=== PATIENT | male | born 1950 | race Caucasian/White ===

== ENCOUNTER 2021-06-16 18:40 | Emergency (ER) | payer MEDICARE, MEDICAID, SELFPAY ==
[2021-06-16 18:41] VITALS: BP 150/97; PULSE 123; RESP 20; TEMP 37.6; O2SAT 91; BMI 34.9
--- NOTE | 2021-06-16 20:41 | EKG12_ITS ---
Test Reason : COUGH Blood Pressure : / mmHG Vent. Rate : 093 BPM Atrial Rate : 093 BPM P-R Int : 138 ms QRS Dur : 088 ms QT Int : 354 ms P-R-T Axes : 046 030 065 degrees QTc Int : 440 ms Normal sinus rhythm Nonspecific ST and T wave abnormality Abnormal ECG Confirmed by DICK MICHAEL, BINDU ([id number]), supervising film or videotape editor ANGÉLICA MARIE ([id number]) on 06/18/2021 1:32:56 PM Referred By: CAMRON Confirmed By:BINDU JENNINGS MD
--- NOTE | 2021-06-16 20:49 | EX.ED.DYSGE1 ---
HPI History of Present Illness Chief Complaint: Cough Informant: patient and spouse/S.O. Narrative Narrative: Patient presents with concern for Covid. He has had symptoms for about 1 week. He was exposed to her daughter about 3 weeks ago with it. He does not have any immunizations. He had started with nasal congestion. He then developed cough. He only has very mild dyspnea. No chest pain. He has had diarrhea but no nausea or vomiting. He states he cannot eat but what he means is that he does not have an appetite. He is able to eat and drink well. There is no vomiting. He states he came in here because his was concerned about him. His states she is concerned because he has fevers and just lays around the house and does not do much. Past medical history high blood pressure high cholesterol and cervical stenosis. Atorvastatin, losartan No known drug allergies Surgery is spinal surgery Non-smoker lives with , not immunized [facility] Home Medications levofloxacin 750 mg PO DAILY #6 tab 06/16/21 [Rx Last Taken Unknown] Allergy/AdvReac Type Severity Reaction Status Date / Time No Known Allergies Allergy Verified 06/16/21 18:41 Social History Smoking Status: Former smoker ROS ROS ED Constitutional Constitutional ED: Reports chills, fever(s) and sweats; Denies weight loss Eyes Eyes: Denies change in vision ENT ENT ED: Reports rhinorrhea; Denies ear pain or sore throat Cardiovascular Cardiovascular: Denies chest pain or palpitations Respiratory/Chest Respiratory/Chest: Reports cough and dyspnea; Denies sputum Gastrointestinal Gastrointestinal: Reports diarrhea; Denies abdominal pain, constipation, melena, nausea or vomiting Genitourinary Genitourinary ED: Denies dysuria Musculoskeletal Musculoskeletal: Reports myalgias Integumentary Denies rash Neurologic Neurologic: Denies headache(s) or weakness Psychiatric Psychiatric: Denies anxiety Endocrine Endocrinology: Denies polyuria Allergic/Immunologic Allergic/Immunologic ED: Denies urticaria EXAM Physical Exam Const Vital Signs: 06/16/21 18:41 Temperature 99.6 F H Temperature Source Temporal Pulse Rate 123 H Respiratory Rate 20 H Blood Pressure 150/97 H Blood Pressure Mean 114 Pulse Ox 91 Oxygen Delivery Method Room Air Positive well nourished, well developed and obese General Appearance ED: well developed and NAD Nutritional Appearance: obese HEENT Reports dry mucous membranes Negative for trauma or tenderness Mouth ED: Yes dry mucous membranes Mouth: dry mucous membranes Eyes General Eye ED: Negative for pale conjunctiva Neck no lymphadenopathy Chest Wall inspection of chest normal Resp normal respiratory effort Resp Narrative: Patient does have some mild bilateral basilar rhonchi more toward the left base. I do not hear wheezes. His breathing is easy and unlabored. Auscultation: rhonchi Cardio no murmurs; Negative for regular rhythm Rate: tachycardic GI normal to inspection, nondistended, normoactive bowel sounds and non-tender Palpation: soft Back/Spine no CVA tenderness Extremity normal to inspection General Extremety ED: Negative for edema or tenderness General Extremity: Negative for edema Neuro oriented x3 Psych mental status grossly normal Skin no rashes or lesions noted MDM MDM MDM Narrative Medical decision making narrative: Patient CBC is normal. Electrolytes show no marked abnormalities. Lactic acid is normal. Troponin is negative. X-ray was reading some bilateral perihilar infiltrates. There is a small left effusion. He looks mostly like a left-sided findings. His Covid actually was negative. I explained that this Covid may be a false negative. But he does have some cough fever and he has x-ray findings more on the left. We will treat as potential pneumonia. He is comfortable going home. He states he feels well. He can eat and drink. His saturations are 92% moving around in the room. If he develops pain, vomiting, cannot keep meds down, dyspnea or any other findings he should return. Lab Data Attestation: I reviewed the patient's lab results. Labs: Laboratory Results - last 24 hr 06/16/21 06/16/21 06/16/21 21:21 21:21 21:21 WBC 6.0 RBC 4.96 Hgb 14.6 Hct 45.4 MCV 91.5 MCH 29.4 MCHC 32.2 RDW Std Deviation 45.4 H RDW Coeff of Matt 13.3 Plt Count 161 MPV 9.0 Immature Gran % (Auto) 0.200 Neut % (Auto) 79.8 H Lymph % (Auto) 10.6 L Blaine % (Auto) 8.9 Eos % (Auto) 0.2 Baso % (Auto) 0.3 Absolute Neuts (auto) 4.8 Absolute Lymphs (auto) 0.63 L Nucleated RBC % 0 Sodium 136 Potassium 3.7 Chloride 103 Carbon Dioxide 26.0 Anion Gap 7 BUN 14 Creatinine 0.97 Estim Creat Clear Calc 66.60 Est GFR (MDRD) Af Amer 98 Est GFR (MDRD) Non-Af 81 BUN/Creatinine Ratio 14.4 Glucose 130 H Lactic Acid 1.2 Calcium 8.1 L Troponin I High Sens 18 Radiography Diagnostic Testing: Radiology Impression Chest X-Ray 06/16/21 21:35 IMPRESSION: Bilateral perihilar infiltrates. Small left pleural effusion with overlying atelectasis. Electronically Signed: Malachi Birch MD at 22:34 EDT Tel , Service support , EKG Initial EKG: Comments: EKG done for cough and mild dyspnea read by me shows a normal sinus rhythm with some irregular baseline and nonspecific changes. No ectopy. There is no acute ST elevation consistent with infarct. [place] interval, QRS duration and QTc are normal. The EKG does have a little bit more nonspecific changes than 1 from 06 December 2006?over 14 years ago. Discharge Plan Triage Chief Complaint: Cough Other Complaint: Diarrhea Fever ED Provider: Jimmie Payton Dx/Rx/DC Orders Clinical Impression: Pneumonia Instructions: ED Pneumonia (Adult) Prescriptions: New levofloxacin 750 mg tablet 750 mg PO DAILY Qty: 6 RF: 0 Primary Care Provider: Zachery Lindquist Referrals: Zachery Lindquist MD [Primary Care Provider] - 3-5 Days Disposition Disposition: Home, Self Care
[2021-06-16 21:35] LABS: Absolute Lymphocyte Count 0.63 X10^3/uL (0.83-4.51); Absolute Neutrophil Count 4.8 X10^3/uL (2.0-7.7); Basophil# 0.02 X10^3/uL; Basophil% 0.3 % (0-1); Eosinophil# 0.01 X10^3/uL; Eosinophils% 0.2 % (0-5); Hematocrit 45.4 % (40-54); Hemoglobin 14.6 g/dL (13.0-16.5); Lymphocyte # 0.63 X10^3/ul (0.83-4.51); Lymphocyte % 10.6 % (19-41); Mean Corp Hgb Conc 32.2 g/dL (32-36); Mean Corpuscular Hgb 29.4 pg (27.0-32.0); Mean Corpuscular Volume 91.5 fL (80-94); Monocyte# 0.53 X10^3/uL; Monocyte% 8.9 % (0-10); NRBC Flagged by Analyzer 0 % (0-5); Neutrophil # 4.75 X10^3/uL (2.7-7.7); Neutrophil % 79.8 % (47-70); Platelet Count 161 K/mm3 (150-450); RBC Distribution Width CV 13.3 % (11.6-14.6); RBC Distribution Width SD 45.4 fl (35.1-43.9); Red Blood Count 4.96 M/mm3 (4.6-6.2)
--- NOTE | 2021-06-16 21:35 | RAD_ITS ---
STUDY: X-RAY CHEST REASON FOR EXAM: Male, 70 years old. SOB TECHNIQUE: Portable, upright, AP chest radiograph COMPARISON: None. FINDINGS: Lower cervical posterior instrumented fusion partially demonstrated. Left basilar atelectasis. Streaky bilateral perihilar opacities. Small left pleural effusion. Normal size heart. Normal mediastinum and uvaldo. Normal visualized pulmonary arteries. Normal visualized aortic arch and descending thoracic aorta. Normal visualized thoracic spine. Normal visualized ribs, clavicles, and shoulders. There is no demonstrated abnormality of the visualized soft tissue structures of the upper abdomen. RAD/Chest 1 View (Portable) IMPRESSION: Bilateral perihilar infiltrates. Small left pleural effusion with overlying atelectasis. Electronically Signed: Malachi Birch MD at 22:34 EDT Tel , Service support ,
[2021-06-16 21:54] LABS: Anion Gap 7 (5-15); BUN 14 mg/dL (7-18); BUN/Creat Ratio 14.4 RATIO (10-20); Calcium,Total 8.1 mg/dL (8.5-10.1); Chloride 103 mmol/L (98-107); Creatinine, Serum 0.97 mg/dL (0.70-1.30); EST Glomerular Filtration Rate 81 mL/min (>60); Est Glom Filt Rate - Afr Amer 98 mL/min (>60); Glucose 130 mg/dL (74-106); Potassium 3.7 mmol/L (3.5-5.1); Sodium Level 136 mmol/L (136-145); Troponin-I HS 18 pg/mL (3.0-78.0)
[2021-06-16 21:55] LABS: Lactic Acid 1.2 mmol/L (0.4-1.9)
[2021-06-16 23:09] VITALS: BP 159/92; PULSE 91; PULSE 92; RESP 21; TEMP 36.1; O2SAT 93
[2021-06-16 23:12] VITALS: BP 159/92; PULSE 92; RESP 18; O2SAT 93
[2021-06-16] MEDS: levoFLOXacin 750 MG Tablet PO (23:16)
== END 2021-06-16 23:18 | disposition home or self-care (01) ==
PROVIDERS: Emergency Provider Emergency Medicine; PCP Family Medicine
DX: J18.9 Pneumonia, unspecified organism (principal); Z20.822 Contact with and (suspected) exposure to COVID-19; R06.00 Dyspnea, unspecified; R19.7 Diarrhea, unspecified; M79.10 Myalgia, unspecified site; I10 Essential (primary) hypertension; E78.00 Pure hypercholesterolemia, unspecified; E66.9 Obesity, unspecified; Z87.891 Personal history of nicotine dependence
CPT/HCPCS: 71045; 80048; 83605; 84484; 85025; 87426; 93005; 96360; 96361; 99284; J7040; A4216

== ENCOUNTER 2021-06-22 09:08 | Inpatient (IN) | payer MEDICARE, MEDICAID, SELFPAY ==
[2021-06-22] VITALS (11 sets, daily range): BP systolic 125–149; BP diastolic 3–93; PULSE 76–96; RESP 18–34; TEMP 36–37.8; O2SAT 85–95; BMI 34.9
--- NOTE | 2021-06-22 09:29 | EKG12_ITS ---
Test Reason : Blood Pressure : / mmHG Vent. Rate : 089 BPM Atrial Rate : 089 BPM P-R Int : 126 ms QRS Dur : 092 ms QT Int : 388 ms P-R-T Axes : 032 041 044 degrees QTc Int : 472 ms Normal sinus rhythm Nonspecific ST abnormality Abnormal ECG Confirmed by DICK MICHAEL, BINDU ([id number]), commissioning editor HOWARD DONOHUE ([id number]) on 06/26/2021 1:34:08 PM Referred By: FAUSTO Confirmed By:BINDU JENNINGS MD
--- NOTE | 2021-06-22 09:33 | EDS_ITS ---
HPI History of Present Illness Chief Complaint: Shortness of Breath Narrative Narrative: Patient presents with shortness of breath. He was found to be hypoxic in triage at 85%. He was recently seen and had a negative Covid test but his symptoms were classic thus the thought was that he had a false negative test. He was discharged home but now he is feeling worse. He is presenting with fevers myalgias and shortness of breath the cough is nonproductive. He has no neck pain or stiffness. No rash. No abdominal pain, no urinary symptoms. He has no confusion. [facility] Medical History (Updated 06/22/21 @ 10:[address] Malachi Youssef MD) Cervical spine degeneration Depression Depression Former smoker Hypertension Home Medications levofloxacin 750 mg PO DAILY #6 tab 06/16/21 [Rx Last Taken Unknown] atorvastatin 10 mg OTHER DAILY 06/22/21 [History Last Taken Unknown] losartan 25 mg PO DAILY 06/22/21 [History Last Taken Unknown] sertraline 100 mg OTHER DAILY 06/22/21 [History Last Taken Unknown] Allergy/AdvReac Type Severity Reaction Status Date / Time No Known Allergies Allergy Verified 06/22/21 09:11 Social History Smoking Status: Former smoker ROS ROS ED ROS Narrative Past medical history: Reviewed, includes hypertension, hypercholesterolemia, depression Medications: Reviewed Social history: Noncontributory Review of systems: All systems negative except as indicated General: Fever and generalized weakness Eyes: No visual changes ENT: No upper airway congestion, normal voice Neck: No neck pain Cardiovascular: No chest pain Respiratory: Shortness of breath as in HPI Gastrointestinal: No abdominal pain, nausea vomiting or diarrhea Genitourinary: No dysuria Musculoskeletal: Generalized myalgias Skin: No rash Neurological: No memory loss, confusion or any focal weakness Psych: No recent behavioral changes Hematologic: No easy bleeding or easy bruising EXAM Physical Exam Narrative Exam Narrative: Physical exam General: Patient appears uncomfortable. He does not appear toxic Head: Normocephalic, Atraumatic Eyes: Conjunctiva not pale ENT: Slightly dry mucous membranes Neck: Supple, Nontender, No lymphadenopathy Cardiovascular: Regular rate, Regular rhythm Respiratory: He is tachypneic with coarse bilateral breath sounds but they are mostly clear. He is speaking in full sentences. Abdomen: Soft, Nontender, Nondistended Back: Nontender, Normal Inspection. Negative for: CVA tenderness Extremities: Nontender, No edema Skin: Normal color, No rash Neurological: Alert, Normal Strength, Normal Sensation Psychological: Normal affect Const Vital Signs: 06/22/21 09:11 06/22/21 09:13 06/22/21 09:24 Temperature 100 F H 100.0 F H Temperature Source Temporal Oral Pulse Rate 96 91 Respiratory Rate 30 H 20 H Respiratory Effort Blood Pressure 149/81 H 125/3 H Blood Pressure Mean 103 43 Pulse Ox 85 91 93 Oxygen Delivery Method Room Air Nasal Cannula Nasal Cannula Oxygen Flow Rate (L/min) 6 6 Fraction of Inspired Oxygen (FIO2) 06/22/21 09:36 06/22/21 10:20 Temperature 99.2 F H Temperature Source Temporal Pulse Rate 86 Respiratory Rate 18 Respiratory Effort Short of Breath Blood Pressure 134/70 H Blood Pressure Mean 91 Pulse Ox 95 Oxygen Delivery Method Room Air Nasal Cannula Oxygen Flow Rate (L/min) 6 6 Fraction of Inspired Oxygen (FIO2) 93 MDM MDM MDM Narrative Medical decision making narrative: Patient is hypoxic, he does have bilateral infiltrates, these do appear to look like a Covid pneumonia, the initial antigen test was negative, I will await the PCR test. If this is also negative we will need to place the patient on antibiotics. Otherwise he is hypoxic and will need admission. Lab Data Labs: Laboratory Results - last 24 hr 06/22/21 06/22/21 09:30 09:30 WBC 12.4 H RBC 4.51 L Hgb 13.2 Hct 39.3 L MCV 87.1 MCH 29.3 MCHC 33.6 RDW Std Deviation 42.3 RDW Coeff of Matt 13.2 Plt Count 279 MPV 8.4 Immature Gran % (Auto) 2.200 H Neut % (Auto) 88.8 H Lymph % (Auto) 4.8 L Kay % (Auto) 4.0 Eos % (Auto) 0.0 Baso % (Auto) 0.2 Absolute Neuts (auto) 11.0 H Absolute Lymphs (auto) 0.60 L Nucleated RBC % 0 Sodium 132 L Potassium 3.2 L Chloride 98 Carbon Dioxide 23.0 Anion Gap 11 BUN 18 Creatinine 0.96 Estim Creat Clear Calc 67.29 Est GFR (MDRD) Af Amer 99 Est GFR (MDRD) Non-Af 82 BUN/Creatinine Ratio 18.8 Glucose 128 H Calcium 8.3 L Total Bilirubin 0.60 AST 58 H ALT 44 Alkaline Phosphatase 71 Troponin I High Sens 30 Total Protein 6.9 Albumin 2.5 L Globulin 4.4 H Albumin/Globulin Ratio 0.6 L Radiography Diagnostic Testing: Radiology Impression Chest X-Ray 06/22/21 09:42 IMPRESSION: New infiltrate in the right upper lobe abutting the right minor fissure. Progressive left basilar infiltrates. Electronically Signed: James Ring MD at 9:55 EDT , Service support , Discharge Plan Triage Chief Complaint: Shortness of Breath ED Provider: Malachi Youssef Dx/Rx/DC Orders Clinical Impression: Pneumonia, Hypoxia Prescriptions: No Action levofloxacin 750 mg tablet 750 mg PO DAILY Qty: 6 RF: 0 losartan 25 mg Tablet 25 mg PO DAILY RF: 0 atorvastatin 10 mg 10 mg OTHER DAILY RF: 0 sertraline 100 mg 100 mg OTHER DAILY RF: 0 Primary Care Provider: Zachery Lindquist Referrals: Zachery Lindquist MD [Primary Care Provider] - Disposition Disposition: Acute Care Hospital [facility]
--- NOTE | 2021-06-22 09:42 | RAD_ITS ---
STUDY: X-RAY CHEST REASON FOR EXAM: Male, 70 years old. Worsening shortness of breath and weakness. TECHNIQUE: Single AP portable view of the chest. COMPARISON: None. FINDINGS: EKG lead traversing. There is elevation of the right hemidiaphragm. Findings suggestive of an early infiltrate in the right upper lobe abutting the right minor fissure. Patchy left lower lobe infiltrates. There is no demonstrated pleural abnormality. Normal size heart. Normal mediastinum and uvaldo. Normal visualized pulmonary arteries. There is atherosclerotic tortuosity of the aortic arch and descending thoracic aorta. There are diffuse degenerative changes of the visualized thoracic spine. Prior fusion in the lower cervical spine. There is no demonstrated abnormality of the visualized soft tissue structures of the upper abdomen. RAD/Chest 1 View (Portable) IMPRESSION: New infiltrate in the right upper lobe abutting the right minor fissure. Progressive left basilar infiltrates. Electronically Signed: James Ring MD at 9:55 EDT , Service support ,
[2021-06-22 09:43] LABS: Basophil# 0.03 X10^3/uL; Basophil% 0.2 % (0-1); Hematocrit 39.3 % (40-54); Hemoglobin 13.2 g/dL (13.0-16.5); Lymphocyte % 4.8 % (19-41); Mean Corp Hgb Conc 33.6 g/dL (32-36); Mean Corpuscular Hgb 29.3 pg (27.0-32.0); Mean Corpuscular Volume 87.1 fL (80-94); Mean Platelet Vol. 8.4 fl (6.2-12.0); NRBC Flagged by Analyzer 0 % (0-5); Neutrophil # 11.03 X10^3/uL (2.7-7.7); Neutrophil % 88.8 % (47-70); POSITIVE DIFFERENTIAL YES; Platelet Count 279 K/mm3 (150-450); RBC Distribution Width CV 13.2 % (11.6-14.6); RBC Distribution Width SD 42.3 fl (35.1-43.9); Red Blood Count 4.51 M/mm3 (4.6-6.2); White Blood Count 12.4 K/mm3 (4.4-11.0)
[2021-06-22 09:44] LABS: Differential Indicated SCAN CRITERIA MET
[2021-06-22] MEDS: dexAMETHasone 4 MG/ML Vial 6 MG IV (09:46)
[2021-06-22 10:07] LABS: ALB/GLOB Ratio 0.6 RATIO (0.9-2.4); AST(SGOT) 58 U/L (15-37); Alanine Aminotransfer ALT/SGPT 44 U/L (16-61); Albumin, Serum 2.5 g/dL (3.2-5.0); Alkaline Phosphatase 71 U/L (45-117); Anion Gap 11 (5-15); BUN 18 mg/dL (7-18); BUN/Creat Ratio 18.8 RATIO (10-20); Calcium,Total 8.3 mg/dL (8.5-10.1); Chloride 98 mmol/L (98-107); Creatinine, Serum 0.96 mg/dL (0.70-1.30); EST Glomerular Filtration Rate 82 mL/min (>60); Est Glom Filt Rate - Afr Amer 99 mL/min (>60); Estimated Creatinine Clearance 67.29 ml/min; Globulin 4.4 g/dL (2.2-4.2); Glucose 128 mg/dL (74-106); Potassium 3.2 mmol/L (3.5-5.1); Protein, Total 6.9 g/dL (6.4-8.2); Sodium Level 132 mmol/L (136-145); Troponin-I HS 30 pg/mL (3.0-78.0)
--- NOTE | 2021-06-22 12:37 | PCM.HP.STD ---
HPI - General General Date of Admission: 06/22/21 HPI Narrative YORDAN BARRERA, is a 70 M who presents with shortness of breath. He has been sick since the 6th. Gradually he has been more short of breath. He was exposed to COVID 19 by being around his daughter and grandchild. Patient presented emergency room and was placed on 6 L and received dexamethasone. The rapid COVID-19 was negative. The PCR is currently pending. The hospital service was contacted for admission. Patient did not get the vaccine. He is open to receiving additional medications to help him survive this bout of COVID-19. [facility] Medical History Cervical spine degeneration Depression Depression Former smoker Hypertension Home Medications levofloxacin 750 mg PO DAILY #6 tab 06/16/21 [Rx Last Taken Unknown] atorvastatin 10 mg OTHER DAILY 06/22/21 [History Last Taken Unknown] losartan 25 mg PO DAILY 06/22/21 [History Last Taken Unknown] sertraline 100 mg OTHER DAILY 06/22/21 [History Last Taken Unknown] Allergy/AdvReac Type Severity Reaction Status Date / Time No Known Allergies Allergy Verified 06/22/21 09:11 Social History Smoking Status: Former smoker ROS ROS Narrative Anosmia. Dysgeusia. Fever chills. Malaise. All review of systems were negative except as mentioned above in the history of present illness and the other review of systems. Vital Signs Vital Signs Vital Signs: 06/22/21 09:11 06/22/21 09:13 06/22/21 09:24 Temperature 37.7 C H 37.8 C H Temperature Source Temporal Oral Pulse Rate 96 91 Respiratory Rate 30 H 20 H Respiratory Effort Blood Pressure 149/81 H 125/3 H Blood Pressure Mean 103 43 Pulse Ox 85 91 93 Oxygen Delivery Method Room Air Nasal Cannula Nasal Cannula Oxygen Flow Rate (L/min) 6 6 Fraction of Inspired Oxygen (FIO2) 06/22/21 09:36 06/22/21 10:20 06/22/21 12:18 Temperature 37.3 C H 36.9 C Temperature Source Temporal Temporal Pulse Rate 86 76 Respiratory Rate 18 22 H Respiratory Effort Short of Breath Blood Pressure 134/70 H 125/93 H Blood Pressure Mean 91 103 Pulse Ox 95 93 Oxygen Delivery Method Room Air Nasal Cannula Nasal Cannula Oxygen Flow Rate (L/min) 6 6 4 Fraction of Inspired Oxygen (FIO2) 93 Weight Weight: 104.326 kg Body Mass Index (BMI) 34.9 Physical Exam Const alert Constitutional Narrative: On 6 L oxygen. Slight tachypnea. General Appearance: cooperative HEENT normocephalic Eyes Eyes Narrative: No scleral icterus Resp normal respiratory effort, no retractions, no use of accessory muscles and clear to auscultation bilaterally Cardio regular rate, regular rhythm, S1 normal heart sound and S2 normal heart sound GI normal to inspection, nondistended, normoactive bowel sounds, soft to palpation, non-tender and non-distended Extremity normal to inspection Skin no rashes or lesions noted Neuro Sensorium / Orientation: awake and alert Psych Mood & Affect: anxious Results Lab / Micro Data Attestation: I reviewed the patient's lab results. Result Diagrams: 06/22/21 09:30 06/22/21 09:30 Labs: Laboratory Results - last 24 hr 06/22/21 09:30: WBC 12.4 H, RBC 4.51 L, Hgb 13.2, Hct 39.3 L, MCV 87.1, MCH 29.3, MCHC 33.6, RDW Std Deviation 42.3, RDW Coeff of Matt 13.2, Plt Count 279, MPV 8.4, Immature Gran % (Auto) 2.200 H, Neut % (Auto) 88.8 H, Lymph % (Auto) 4.8 L, Bath % (Auto) 4.0, Eos % (Auto) 0.0, Baso % (Auto) 0.2, Absolute Neuts (auto) 11.0 H, Absolute Lymphs (auto) 0.60 L, Nucleated RBC % 0 06/22/21 09:30: Sodium 132 L, Potassium 3.2 L, Chloride 98, Carbon Dioxide 23.0, Anion Gap 11, BUN 18, Creatinine 0.96, Estim Creat Clear Calc 67.29, Est GFR (MDRD) Af Amer 99, Est GFR (MDRD) Non-Af 82, BUN/Creatinine Ratio 18.8, Glucose 128 H, Calcium 8.3 L, Total Bilirubin 0.60, AST 58 H, ALT 44, Alkaline Phosphatase 71, Troponin I High Sens 30, Total Protein 6.9, Albumin 2.5 L, Globulin 4.4 H, Albumin/Globulin Ratio 0.6 L Radiology Impression Chest X-Ray 06/22/21 09:42 IMPRESSION: New infiltrate in the right upper lobe abutting the right minor fissure. Progressive left basilar infiltrates. Electronically Signed: James Ring MD at 9:55 EDT , Service support , Assessment & Plan Assessment/Plan (1) Pneumonia: QUALIFIERS: Pneumonia type: due to unspecified organism Laterality: bilateral Lung location: unspecified part of lung Qualified Code(s): J18.9 - Pneumonia, unspecified organism (2) Acute respiratory failure with hypoxia: PLAN: 1. Suspected acute COVID-19 pneumonia Patient unvaccinated and to had exposure to his daughter. Patient onset of symptoms was June 11. Rapid test was negative and his PCR is currently pending. Patient out of the window for remdesivir. Start dexamethasone Patient's was present and advised to quarantine for 14 days. 2. Acute hypoxic respiratory failure Secondary to above On 6L, wean oxygen as tolerated Check CT angiogram of the chest to evaluate for PE. 3. Hypertension Continue losartan 4. Depression Continue with sertraline 5. VTE prophylaxis with enoxaparin 6. CODE STATUS: Addressed with the patient. Patient wishes to be full CODE STATUS. Charges/Coding Visit Charges Inpatient E&M: 94483 Init Hosp L3
--- NOTE | 2021-06-22 12:42 | CT_ITS ---
STUDY: CTA CHEST REASON FOR EXAM: Male, 70 years old. dyspnea. Pneumonia RADIATION DOSAGE (If Supplied By Facility): CTDIvol = ( 11.48 ) mGy, DLP = ( 581.31 ) mGycm TECHNIQUE: The examination was performed with the intravenous administration of IV 100mL Isovue-370. Post-processing of the angiographic images was performed, with multiplanar reformation and 3D reconstruction. Individualized dose optimization techniques were used for this CT. COMPARISON: None. FINDINGS: Normal enhancement of the main pulmonary artery and right and left pulmonary arteries. Normal enhancement of the bilateral peripheral pulmonary arteries. There is no demonstrated pulmonary embolism. Normal thoracic aorta and visualized great vessels. There is no demonstrated aortic dissection. Normal heart and pericardium. There are visualized mediastinal lymph nodes, which are within normal size limits, and with normal morphology. Normal hilar regions. Normal visualized trachea and bronchi. The lungs are well expanded. Diffuse bilateral groundglass appearance in the periphery and show peripheral lateral distribution in the upper lobes. Patchy infiltrates in both lower lobes and the parapharyngeal peripheral distribution. Finding suggestive of pneumonitis secondary to Covid. Normal pleura. Normal chest wall structures. There are degenerative changes of thoracic spine. Small hiatal hernia. CT/CTA Chest W/WO Contrast IMPRESSION: No evidence of pulmonary embolism. Aggressive appearance and patchy infiltrates in both lungs and the preferential peripheral distribution. Pneumonitis secondary to Covid should be ruled out. Electronically Signed: James Ring MD at 14:03 EDT , Service support ,
--- NOTE | 2021-06-22 15:00 | NURSING ---
Pulse ox 88-89% on 6L, RT called for evaluation
[2021-06-22] MEDS: Enoxaparin 40 MG/0.4 ML Syringe SC (17:21)
[2021-06-22] MEDS: 0.9% Saline Lock 10 ML Syringe IV (18:17)
--- NOTE | 2021-06-22 18:25 | NURSING ---
pt back in bed. Gave I.S and educated importance of using and how to use. Also gave specimen cup and explained need for sputum sample. pt is also aware of need for Urine Sample for legionella.
[2021-06-23] VITALS (9 sets, daily range): BP systolic 130–154; BP diastolic 67–86; PULSE 68–84; RESP 18–24; TEMP 35.8–36.6; O2SAT 88–95
[2021-06-23 06:30] LABS: Absolute Lymphocyte Count 0.81 X10^3/uL (0.83-4.51); Basophil# 0.04 X10^3/uL; Basophil% 0.3 % (0-1); Eosinophils% 2.5 % (0-5); Hematocrit 40.9 % (40-54); Hemoglobin 13.8 g/dL (13.0-16.5); Lymphocyte # 0.81 X10^3/ul (0.83-4.51); Lymphocyte % 6.7 % (19-41); Mean Corp Hgb Conc 33.7 g/dL (32-36); Mean Corpuscular Hgb 29.2 pg (27.0-32.0); Mean Corpuscular Volume 86.5 fL (80-94); Mean Platelet Vol. 8.6 fl (6.2-12.0); Monocyte% 5.8 % (0-10); NRBC Flagged by Analyzer 0 % (0-5); Neutrophil # 10.01 X10^3/uL (2.7-7.7); Neutrophil % 83.5 % (47-70); POSITIVE MORPHOLOGY YES; Platelet Count 311 K/mm3 (150-450); RBC Distribution Width CV 13.2 % (11.6-14.6); RBC Distribution Width SD 42.5 fl (35.1-43.9); Red Blood Count 4.73 M/mm3 (4.6-6.2)
[2021-06-23 06:31] LABS: Differential Indicated SCAN CRITERIA MET
[2021-06-23 07:01] LABS: Differential Comment SCANNED
[2021-06-23 07:03] LABS: ALB/GLOB Ratio 0.6 RATIO (0.9-2.4); AST(SGOT) 79 U/L (15-37); Alanine Aminotransfer ALT/SGPT 62 U/L (16-61); Albumin, Serum 2.4 g/dL (3.2-5.0); Alkaline Phosphatase 71 U/L (45-117); Anion Gap 7 (5-15); BUN 22 mg/dL (7-18); BUN/Creat Ratio 26.3 RATIO (10-20); Calcium,Total 8.5 mg/dL (8.5-10.1); Chloride 100 mmol/L (98-107); Creatinine, Serum 0.84 mg/dL (0.70-1.30); EST Glomerular Filtration Rate 96 mL/min (>60); Est Glom Filt Rate - Afr Amer 116 mL/min (>60); Globulin 4.2 g/dL (2.2-4.2); Glucose 149 mg/dL (74-106); Potassium 3.3 mmol/L (3.5-5.1); Protein, Total 6.6 g/dL (6.4-8.2); Sodium Level 134 mmol/L (136-145)
[2021-06-23] MEDS: 0.9% Saline Lock 10 ML Syringe IV (10:35)
[2021-06-23] MEDS: dexAMETHasone 4 MG Tablet 6 MG PO (10:48)
[2021-06-23] MEDS: Losartan Potassium 25 MG Tablet PO (10:49)
[2021-06-23] MEDS: Enoxaparin 40 MG/0.4 ML Syringe SC ×2 (10:49→20:35)
[2021-06-23] MEDS: Atorvastatin Calcium 10 MG Tablet PO (10:49)
[2021-06-23] MEDS: Sertraline 100 MG Tablet PO (10:59)
--- NOTE | 2021-06-23 13:02 | NURSING ---
Sp02 79% alarming at the nurses desk. This nurse in to see pt and was sitting on edge of bed eating but had Non rebreather mask off. Pt was done eating so Non-rebreather reapplied and pt layed back in bed. spo2 90% with non-rebreather.
--- NOTE | 2021-06-23 13:50 | CASEMGMT ---
RN CM attempted to call patient in room to complete RN CM assessment. No answer. Patient is currently on 10lpm non rebreather. CM to attempted again at later time.
--- NOTE | 2021-06-23 15:50 | PCM.PN.HOSP ---
Subjective Subjective Increased oxygen requirements. Feels despite this. Objective Data Objective Data Vital Signs: Vital Signs Temp Pulse Resp BP Pulse Ox 36.4 C L 78 22 H 149/73 H 92 06/23/21 15:39 06/23/21 15:39 06/23/21 15:39 06/23/21 15:39 06/23/21 15:39 Oxygen Flow Rate (L/min) 10 Oxygen Delivery Method Nasal Cannula Weight: 104.326 kg Body Mass Index (BMI) 34.9 Intake & Output: Intake and Output for Last 24 Hours 06/21/21 06/22/21 06/23/21 23:59 23:59 23:59 Intake Total 785.5 / 785.5 954.5 / 954.5 Output Total 1025 / 1025 Balance 785.5 / 535.5 -70.5 / -70.5 Lab / Micro Data Result Diagrams: 06/23/21 06:21 06/23/21 06:21 Labs: Laboratory Results - last 24 hr 06/23/21 06:21: WBC 12.0 H, RBC 4.73, Hgb 13.8, Hct 40.9, MCV 86.5, MCH 29.2, MCHC 33.7, RDW Std Deviation 42.5, RDW Coeff of Matt 13.2, Plt Count 311, MPV 8.6, Immature Gran % (Auto) 1.200 H, Neut % (Auto) 83.5 H, Lymph % (Auto) 6.7 L, [place] % (Auto) 5.8, Eos % (Auto) 2.5, Baso % (Auto) 0.3, Absolute Neuts (auto) 10.0 H, Absolute Lymphs (auto) 0.81 L, Nucleated RBC % 0, Differential Comment SCANNED 06/23/21 06:21: Sodium 134 L, Potassium 3.3 L, Chloride 100, Carbon Dioxide 27.0, Anion Gap 7, BUN 22 H, Creatinine 0.84, Estim Creat Clear Calc 76.90, Est GFR (MDRD) Af Amer 116, Est GFR (MDRD) Non-Af 96, BUN/Creatinine Ratio 26.3 H, Glucose 149 H, Calcium 8.5, Total Bilirubin 0.40, AST 79 H, ALT 62 H, Alkaline Phosphatase 71, Total Protein 6.6, Albumin 2.4 L, Globulin 4.2, Albumin/Globulin Ratio 0.6 L Micro: Microbiology 06/22/21 23:59 Urine, Clean Catch Streptococcus pneumoniae Antigen (M - Final 06/22/21 23:59 Urine, Clean Catch Legionella Antigen - Final Physical Exam Const alert Resp normal respiratory effort, no retractions, no use of accessory muscles and clear to auscultation bilaterally Cardio regular rate, regular rhythm, S1 normal heart sound and S2 normal heart sound GI normal to inspection, nondistended, normoactive bowel sounds, soft to palpation, non-tender and non-distended Extremity normal to inspection Assessment & Plan Assessment/Plan (1) Pneumonia: QUALIFIERS: Pneumonia type: due to unspecified organism Laterality: bilateral Lung location: unspecified part of lung Qualified Code(s): J18.9 - Pneumonia, unspecified organism (2) Acute respiratory failure with hypoxia: PLAN: 1. Suspected acute COVID-19 pneumonia Patient unvaccinated and to had exposure to his daughter. Patient onset of symptoms was June 11. Rapid test was negative and his PCR is negative. Patient out of the window for remdesivir. Start dexamethasone Patient's was present and advised to quarantine for 14 days. 2. Acute hypoxic respiratory failure Secondary to above Overall worse Secondary to suspected COVID-19. Patient being empirically treated for bacterial pneumonias. Consider discontinuation of antibiotics if cultures are negative. Patient high risk of decompensation. 3. Hypertension Continue losartan 4. Depression Continue with sertraline 5. VTE prophylaxis with enoxaparin 6. CODE STATUS: Addressed with the patient. Patient wishes to be full CODE STATUS. Charges/Coding Visit Charges Inpatient E&M: 46149 Subs Hosp L2
--- NOTE | 2021-06-23 19:39 | CPS ---
Offered RODNEY .. pt declined
--- NOTE | 2021-06-23 23:56 | PCS.PANDOC ---
PANDEMIC DOCUMENTATION INITIATED: Date: 05/21/2021 Time: 190
[2021-06-24] VITALS (10 sets, daily range): BP systolic 129–153; BP diastolic 70–89; PULSE 64–82; RESP 18–20; TEMP 36.6–37; O2SAT 90–94
[2021-06-24 06:25] LABS: Absolute Lymphocyte Count 1.03 X10^3/uL (0.83-4.51); Absolute Neutrophil Count 11.3 X10^3/uL (2.0-7.7); Basophil# 0.05 X10^3/uL; Basophil% 0.4 % (0-1); Hematocrit 41.4 % (40-54); Hemoglobin 13.7 g/dL (13.0-16.5); Lymphocyte # 1.03 X10^3/ul (0.83-4.51); Lymphocyte % 7.6 % (19-41); Mean Corp Hgb Conc 33.1 g/dL (32-36); Mean Corpuscular Hgb 29.1 pg (27.0-32.0); Mean Corpuscular Volume 87.9 fL (80-94); Mean Platelet Vol. 8.5 fl (6.2-12.0); Monocyte# 0.95 X10^3/uL; NRBC Flagged by Analyzer 0 % (0-5); Neutrophil # 11.34 X10^3/uL (2.7-7.7); Neutrophil % 83.6 % (47-70); POSITIVE MORPHOLOGY YES; Platelet Count 413 K/mm3 (150-450); RBC Distribution Width CV 13.3 % (11.6-14.6); RBC Distribution Width SD 42.8 fl (35.1-43.9); Red Blood Count 4.71 M/mm3 (4.6-6.2); White Blood Count 13.6 K/mm3 (4.4-11.0)
[2021-06-24 06:39] LABS: Differential Indicated SCAN CRITERIA MET
[2021-06-24 06:56] LABS: Anion Gap 8 (5-15); BUN 26 mg/dL (7-18); BUN/Creat Ratio 29.3 RATIO (10-20); Calcium,Total 8.4 mg/dL (8.5-10.1); Chloride 102 mmol/L (98-107); Creatinine, Serum 0.89 mg/dL (0.70-1.30); EST Glomerular Filtration Rate 90 mL/min (>60); Est Glom Filt Rate - Afr Amer 109 mL/min (>60); Estimated Creatinine Clearance 72.58 ml/min; Glucose 119 mg/dL (74-106); Potassium 3.2 mmol/L (3.5-5.1); Sodium Level 138 mmol/L (136-145)
[2021-06-24 07:02] LABS: Atypical Lymphocyte 1+ %
[2021-06-24] MEDS: Enoxaparin 40 MG/0.4 ML Syringe SC ×2 (08:48→20:56)
[2021-06-24] MEDS: dexAMETHasone 4 MG Tablet 6 MG PO (08:49)
[2021-06-24] MEDS: Losartan Potassium 25 MG Tablet PO ×2 (08:49)
[2021-06-24] MEDS: Atorvastatin Calcium 10 MG Tablet PO (08:59)
[2021-06-24] MEDS: Sertraline 100 MG Tablet PO (08:59)
--- NOTE | 2021-06-24 14:06 | PCM.PN.HOSP ---
Subjective Subjective tolerating high-flow oxygen. Objective Data Objective Data Vital Signs: Vital Signs Temp Pulse Resp BP Pulse Ox 37.0 C 77 18 129/70 H 93 06/24/21 12:43 06/24/21 12:43 06/24/21 12:43 06/24/21 12:43 06/24/21 12:43 Oxygen Flow Rate (L/min) 14 Oxygen Delivery Method Nasal Cannula Weight: 104.326 kg Body Mass Index (BMI) 34.9 Intake & Output: Intake and Output for Last 24 Hours 06/22/21 06/23/21 06/24/21 23:59 23:59 23:59 Intake Total 785.5 / 785.5 1404.5 / 1404.5 1155 / 1155 Output Total 2024 / 2024 500 / 500 Balance 785.5 / 535.5 -620.5 / -620.5 655 / 655 Lab / Micro Data Result Diagrams: 06/24/21 05:12 06/24/21 05:12 Labs: Laboratory Results - last 24 hr 06/24/21 05:12: WBC 13.6 H, RBC 4.71, Hgb 13.7, Hct 41.4, MCV 87.9, MCH 29.1, MCHC 33.1, RDW Std Deviation 42.8, RDW Coeff of Matt 13.3, Plt Count 413, MPV 8.5, Immature Gran % (Auto) 1.400 H, Neut % (Auto) 83.6 H, Lymph % (Auto) 7.6 L, [place] % (Auto) 7.0, Eos % (Auto) 0.0, Baso % (Auto) 0.4, Absolute Neuts (auto) 11.3 H, Absolute Lymphs (auto) 1.03, Nucleated RBC % 0, Atypical Lymphocytes 1+ 06/24/21 05:12: Sodium 138, Potassium 3.2 L, Chloride 102, Carbon Dioxide 28.0, Anion Gap 8, BUN 26 H, Creatinine 0.89, Estim Creat Clear Calc 72.58, Est GFR (MDRD) Af Amer 109, Est GFR (MDRD) Non-Af 90, BUN/Creatinine Ratio 29.3 H, Glucose 119 H, Calcium 8.4 L Micro: Microbiology 06/23/21 01:50 Sputum, Expectorated/Coughed Gram Stain - Final 06/23/21 01:50 Sputum, Expectorated/Coughed Respiratory Culture - Preliminary Appears to be normal respiratory cookie. Further studies to follow. 06/23/21 13:45 Mucosa - Nasopharyngeal Respiratory Panel (PCR) - Final 06/22/21 23:59 Urine, Clean Catch Streptococcus pneumoniae Antigen (M - Final 06/22/21 23:59 Urine, Clean Catch Legionella Antigen - Final Physical Exam Const Constitutional Narrative: up in chair. no respiratory distress. no conversational dyspnea. Resp normal respiratory effort, no retractions, no use of accessory muscles and clear to auscultation bilaterally Cardio regular rate, regular rhythm, S1 normal heart sound and S2 normal heart sound GI normal to inspection, nondistended, normoactive bowel sounds, soft to palpation, non-tender and non-distended Assessment & Plan Assessment/Plan (1) Pneumonia: QUALIFIERS: Pneumonia type: due to unspecified organism Laterality: bilateral Lung location: unspecified part of lung Qualified Code(s): J18.9 - Pneumonia, unspecified organism (2) Acute respiratory failure with hypoxia: PLAN: 1. Suspected acute COVID-19 pneumonia Patient unvaccinated and to had exposure to his daughter. Patient onset of symptoms was June 11. Rapid test was negative and his PCR is negative. Patient out of the window for remdesivir. Start dexamethasone Patient's was present and advised to quarantine for 14 days. 2. Acute hypoxic respiratory failure Secondary to above fairly stable, but still at risk of further decompensation. Secondary to suspected COVID-19. Patient being empirically treated for bacterial pneumonias. Consider discontinuation of antibiotics if cultures are negative. Patient high risk of decompensation. 3. Hypertension Continue losartan 4. Depression Continue with sertraline 5. VTE prophylaxis with enoxaparin 6. CODE STATUS: Addressed with the patient. Patient wishes to be full CODE STATUS. Charges/Coding Visit Charges Inpatient E&M: 92743 Subs Hosp L2
[2021-06-24] MEDS: 0.9% Saline Lock 10 ML Syringe IV (20:56)
[2021-06-25] VITALS (9 sets, daily range): BP systolic 124–158; BP diastolic 64–97; PULSE 68–97; RESP 10–20; TEMP 36.2–37.6; O2SAT 88–93
[2021-06-25] MEDS: Albuterol 2.5 MG/3 ML VIAL.NEB. INHALATION (05:00)
[2021-06-25 06:22] LABS: Absolute Lymphocyte Count 0.99 X10^3/uL (0.83-4.51); Absolute Neutrophil Count 11.9 X10^3/uL (2.0-7.7); Basophil# 0.07 X10^3/uL; Basophil% 0.5 % (0-1); Eosinophil# 0.01 X10^3/uL; Eosinophils% 0.1 % (0-5); Hematocrit 41.9 % (40-54); Hemoglobin 13.8 g/dL (13.0-16.5); Lymphocyte # 0.99 X10^3/ul (0.83-4.51); Mean Corp Hgb Conc 32.9 g/dL (32-36); Mean Corpuscular Hgb 29.2 pg (27.0-32.0); Mean Corpuscular Volume 88.8 fL (80-94); Mean Platelet Vol. 8.9 fl (6.2-12.0); Monocyte# 0.93 X10^3/uL; Monocyte% 6.6 % (0-10); NRBC Flagged by Analyzer 0 % (0-5); Neutrophil # 11.89 X10^3/uL (2.7-7.7); Neutrophil % 84.2 % (47-70); POSITIVE MORPHOLOGY YES; Platelet Count 422 K/mm3 (150-450); RBC Distribution Width CV 13.3 % (11.6-14.6); RBC Distribution Width SD 43.6 fl (35.1-43.9); Red Blood Count 4.72 M/mm3 (4.6-6.2); White Blood Count 14.1 K/mm3 (4.4-11.0)
[2021-06-25 06:54] LABS: ALB/GLOB Ratio 0.6 RATIO (0.9-2.4); AST(SGOT) 97 U/L (15-37); Alanine Aminotransfer ALT/SGPT 94 U/L (16-61); Albumin, Serum 2.4 g/dL (3.2-5.0); Alkaline Phosphatase 78 U/L (45-117); Anion Gap 9 (5-15); BUN 26 mg/dL (7-18); Calcium,Total 8.3 mg/dL (8.5-10.1); Chloride 102 mmol/L (98-107); Creatinine, Serum 0.84 mg/dL (0.70-1.30); EST Glomerular Filtration Rate 95 mL/min (>60); Est Glom Filt Rate - Afr Amer 115 mL/min (>60); Globulin 4.2 g/dL (2.2-4.2); Glucose 104 mg/dL (74-106); Potassium 3.5 mmol/L (3.5-5.1); Protein, Total 6.6 g/dL (6.4-8.2); Sodium Level 137 mmol/L (136-145)
[2021-06-25 07:12] LABS: Differential Indicated SCAN CRITERIA MET
[2021-06-25] MEDS: Atorvastatin Calcium 10 MG Tablet PO (10:08)
[2021-06-25] MEDS: dexAMETHasone 4 MG Tablet 6 MG PO (10:08)
[2021-06-25] MEDS: Sertraline 100 MG Tablet PO (10:09)
[2021-06-25] MEDS: Enoxaparin 40 MG/0.4 ML Syringe SC ×2 (10:09→22:09)
--- NOTE | 2021-06-25 12:58 | CASEMGMT ---
ARELY CONLEY Assessment: Face to Face with pt for initial transition planning/care coordination assessment. ARELY CONLEY introduced self and role at [facility], pt voices understanding and consents to assessment. Pt is A/O x4 and answers all questions appropriately at this time. Pt sitting up in chair with O2 on in no distress. Care providers, pharmacy, and demographics verified/updated. Admitting Dx:hypoxia, PNA PCP: Lexa Specialists: Pt denies. [facility]erred [facility]acy[facility] Insurance: My Care CRSC/CRSC Prescription Benefit: yes LW/HPOA: Pt states his DPOA is his Prem Degroot and he has a LW. He states that it was just given to hospital staff this hospital stay to be scanned in. LNOK: Prem Degroot, Living Arrangements: Pt lives with and granddtr in a two story house with 3-4 steps to enter with a rail. Pt and use main floor and granddtr uses the upstairs. Pt reports being I in ADL's and denies concerns at home. Transportation: Pt drives self and denies concerns with transportation. DME/HHC/SNF: Pt has a cane, walker and shower chair at home. Pt denies hx of HHC or SNF stays. Pt reports he was first tested at [facility] for COVID. He states he can quarantine from his by using separate bedrooms but not bathroom. His is currently quarantining. Pt granddtr has been staying with her mother. Pt has family who can provide him with groceries and supplies. Pt provided with a list of local in network DME companies. Pt chose [employer] should he need home O2. Pt states no concerns with going home at time of dc. Pt states no further concerns/needs. CM to follow. Advised pt to ask CM if any further question/concerns/needs arise, voices understanding. Pt Goal: Home Plan: Home
--- NOTE | 2021-06-25 14:45 | PN.HOSP_ITS ---
Subjective Subjective Breathing well with 12liters. Objective Data Objective Data Vital Signs: Vital Signs Temp Pulse Resp BP Pulse Ox 37.2 C 97 10 L 136/64 H 92 06/25/21 10:28 06/25/21 10:28 06/25/21 10:33 06/25/21 10:28 06/25/21 10:28 Oxygen Flow Rate (L/min) 10 Oxygen Delivery Method Nasal Cannula Weight: 104.326 kg Body Mass Index (BMI) 34.9 Intake & Output: Intake and Output for Last 24 Hours 06/23/21 06/24/21 06/25/21 23:59 23:59 23:59 Intake Total 1404.5 / 1404.5 195 / 1954 1255 / 1255 Output Total 2024 / 2024 1100 / 1100 1250 / 1250 Balance -620.5 / -620.5 855 / 855 5 / 5 Lab / Micro Data Result Diagrams: 06/25/21 06:00 06/25/21 06:00 Labs: Laboratory Results - last 24 hr 06/25/21 06:00: WBC 14.1 H, RBC 4.72, Hgb 13.8, Hct 41.9, MCV 88.8, MCH 29.2, MCHC 32.9, RDW Std Deviation 43.6, RDW Coeff of Matt 13.3, Plt Count 422, MPV 8.9, Immature Gran % (Auto) 1.600 H, Neut % (Auto) 84.2 H, Lymph % (Auto) 7.0 L, [place] % (Auto) 6.6, Eos % (Auto) 0.1, Baso % (Auto) 0.5, Absolute Neuts (auto) 11.9 H, Absolute Lymphs (auto) 0.99, Nucleated RBC % 0 06/25/21 06:00: Sodium 137, Potassium 3.5, Chloride 102, Carbon Dioxide 26.0, Anion Gap 9, BUN 26 H, Creatinine 0.84, Estim Creat Clear Calc 76.90, Est GFR (MDRD) Af Amer 115, Est GFR (MDRD) Non-Af 95, BUN/Creatinine Ratio 31.0 H, Glucose 104, Calcium 8.3 L, Total Bilirubin 0.40, AST 97 H, ALT 94 H, Alkaline Phosphatase 78, Total Protein 6.6, Albumin 2.4 L, Globulin 4.2, Albumin/Globulin Ratio 0.6 L Micro: Microbiology 06/23/21 01:50 Sputum, Expectorated/Coughed Gram Stain - Final 06/23/21 01:50 Sputum, Expectorated/Coughed Respiratory Culture - Preliminary Appears to be normal respiratory cookie. Further studies to follow. 06/23/21 13:45 Mucosa - Nasopharyngeal Respiratory Panel (PCR) - Final 06/22/21 23:59 Urine, Clean Catch Streptococcus pneumoniae Antigen (M - Final 06/22/21 23:59 Urine, Clean Catch Legionella Antigen - Final Physical Exam Const alert and oriented x3 Constitutional Narrative: up at side of bed. eating breakfast. Resp normal respiratory effort, no retractions, no use of accessory muscles and clear to auscultation bilaterally Cardio regular rate, regular rhythm, S1 normal heart sound and S2 normal heart sound GI normal to inspection, nondistended, normoactive bowel sounds, soft to palpation, non-tender and non-distended Extremity normal to inspection Assessment & Plan Assessment/Plan (1) Pneumonia: QUALIFIERS: Pneumonia type: due to unspecified organism Laterality: bilateral Lung location: unspecified part of lung Qualified Code(s): J18.9 - Pneumonia, unspecified organism (2) Acute respiratory failure with hypoxia: PLAN: 1. Suspected acute COVID-19 pneumonia Patient unvaccinated and to had exposure to his daughter. Patient onset of symptoms was June 11. Rapid test was negative and his PCR is negative. Patient out of the window for remdesivir. Start dexamethasone Patient's was present and advised to quarantine for 14 days. Continue to encourage pulmonary toileting incentive spirometer Will give one-time dose of furosemide 2. Acute hypoxic respiratory failure Secondary to above fairly stable, but still at risk of further decompensation. Secondary to suspected COVID-19. DC treatment for bacterial pneumonia as infectious work-up has come unremarkable. Wean oxygen as tolerated 3. Hypertension Continue losartan 4. Depression Continue with sertraline 5. VTE prophylaxis with enoxaparin 6. CODE STATUS: Addressed with the patient. Patient wishes to be full CODE STATUS. 7. Prognosis: Still guarded but patient seems to be tolerating the high flow oxygen and has not demonstrated any decompensation. Hopefully can see a trend to decreasing oxygenation. Goal level of the 6 L or less with activity mainta ining a pulse ox of 90%. That is likely least 2 to 3 days away Charges/Coding Visit Charges Inpatient E&M: 98839 Subs Hosp L2
[2021-06-25] MEDS: Furosemide 40 MG/4 ML Vial IV (15:00)
[2021-06-25] MEDS: Potassium Chloride Oral Tablet 20 MEQ 40 MEQ PO (15:01)
--- NOTE | 2021-06-25 15:17 | CHAPLAIN ---
Type of Pastoral Visit ___ Initial Visit ___ Follow-up Visit ___ On-call Visit ___ General Patient Visit ___ Spiritual Assessment ___ Family Conference ___ Bereavement ___ Rapid Response ___ Code Blue _x__ Other (describe below) Pastoral Care Referral From _x__ Patient ___ Family ___ Nurse ___ Physician ___ Human Factors Advisor Lead ___ Stove Mounter ___ Other (describe below) Sacrament/Intervention _x__ Active listening ___ Anointing ___ Bahai ___ Bereavement ___ Communion ___ Bebe exploration ___ ___ Life review ___ Prayer ___ Reconciliation ___ Sacrament of Sick ___ Supportive presence ___ Wedding ___ Other (describe below) Pastoral Comments phone call made into isolation room; pt answers the phone and states that he is doing pretty well and does not need anything today
[2021-06-25] MEDS: 0.9% Saline Lock 10 ML Syringe IV (22:08)
[2021-06-26] VITALS (9 sets, daily range): BP systolic 133–146; BP diastolic 71–86; PULSE 71–89; RESP 20–24; TEMP 36.4–37.2; O2SAT 87–98
[2021-06-26 07:29] LABS: Absolute Lymphocyte Count 1.01 X10^3/uL (0.83-4.51); Absolute Neutrophil Count 9.4 X10^3/uL (2.0-7.7); Basophil# 0.08 X10^3/uL; Basophil% 0.7 % (0-1); Eosinophils% 0.9 % (0-5); Hemoglobin 13.4 g/dL (13.0-16.5); Lymphocyte # 1.01 X10^3/ul (0.83-4.51); Lymphocyte % 8.6 % (19-41); Mean Corp Hgb Conc 31.9 g/dL (32-36); Mean Corpuscular Hgb 28.9 pg (27.0-32.0); Mean Corpuscular Volume 90.5 fL (80-94); Mean Platelet Vol. 8.4 fl (6.2-12.0); Monocyte# 0.57 X10^3/uL; Monocyte% 4.9 % (0-10); NRBC Flagged by Analyzer 0 % (0-5); Neutrophil # 9.42 X10^3/uL (2.7-7.7); Neutrophil % 80.1 % (47-70); Platelet Count 446 K/mm3 (150-450); RBC Distribution Width CV 13.4 % (11.6-14.6); RBC Distribution Width SD 44.5 fl (35.1-43.9); Red Blood Count 4.64 M/mm3 (4.6-6.2); White Blood Count 11.7 K/mm3 (4.4-11.0)
--- NOTE | 2021-06-26 07:34 | CPS ---
Pt is on 8lplm via NC & 40% Venturi Mask= Sat of 97%
[2021-06-26 08:03] LABS: ALB/GLOB Ratio 0.5 RATIO (0.9-2.4); AST(SGOT) 53 U/L (15-37); Alanine Aminotransfer ALT/SGPT 79 U/L (16-61); Albumin, Serum 2.3 g/dL (3.2-5.0); Alkaline Phosphatase 73 U/L (45-117); Anion Gap 8 (5-15); BUN 23 mg/dL (7-18); BUN/Creat Ratio 30.8 RATIO (10-20); Calcium,Total 8.3 mg/dL (8.5-10.1); Chloride 105 mmol/L (98-107); Creatinine, Serum 0.75 mg/dL (0.70-1.30); EST Glomerular Filtration Rate 109 mL/min (>60); Est Glom Filt Rate - Afr Amer 132 mL/min (>60); Globulin 4.6 g/dL (2.2-4.2); Glucose 103 mg/dL (74-106); Potassium 3.7 mmol/L (3.5-5.1); Protein, Total 6.9 g/dL (6.4-8.2); Sodium Level 138 mmol/L (136-145)
[2021-06-26] MEDS: Losartan Potassium 25 MG Tablet PO (08:14)
[2021-06-26] MEDS: Enoxaparin 40 MG/0.4 ML Syringe SC (08:14)
[2021-06-26] MEDS: dexAMETHasone 4 MG Tablet 6 MG PO (08:14)
[2021-06-26] MEDS: Sertraline 100 MG Tablet PO (08:14)
[2021-06-26] MEDS: Atorvastatin Calcium 10 MG Tablet PO (08:14)
--- NOTE | 2021-06-26 12:01 | PCM.DC ---
Discharge Instructions Diet Discharge Diet: No restrictions Activity Discharge Activity: Return to Normal Activity (slowly ease back into normal routine. ) Additional Activity Instructions:: Self isolate for at least 20 days since symptoms began (06/11-06/30/2021) AND at least one day (24 hours) have passed since resolution of fever without the use of fever-reducing agents AND improvement of symptoms (e.g., cough, shortness of breath) When around people in the same room, wear a face mask. Individuals also in the room should wear a mask. If possible, use a different bathroom and bedroom. Perform adequate hand hygiene. Avoid sharing dishes, glasses, etc. Dressing / Incision Call your doctor if you observe: Fever of 101 or Higher and Shortness of breath Follow Up Care Test Results: Test results from this visit will be discussed in further detail at your follow-up appointment, if applicable. Discharge Plan Admission Admit Date/Time: 06/22/21 12:23 Primary Reason for Your Visit: COVID 19 Attending Provider: Lupillo Hobson Primary Care Provider: Zachery Lindquist Discharge Orders/Prescriptions Prescriptions: New dexamethasone 4 mg Tablet 6 mg PO DAILY 6 Days Qty: 9 RF: 0 Continued losartan 25 mg Tablet 25 mg PO DAILY RF: 0 atorvastatin 10 mg 10 mg OTHER DAILY RF: 0 sertraline 100 mg 100 mg OTHER DAILY RF: 0 Discontinued levofloxacin 750 mg tablet 750 mg PO DAILY Qty: 6 RF: 0 Referrals / Follow Up: Zachery Lindquist MD [Primary Care Provider] - Within 1 Week Disposition Disposition (needs filled in before D/C Order can be placed): Home, Self Care
--- NOTE | 2021-06-26 12:05 | DS.PCM_ITS ---
Providers Date of Admission: 06/22/21 Primary Care Physician: Dr. Zachery Lindquist MD Reason For Visit: HYPOXIA, PNEUMONIA Diagnosis Discharge Diagnosis (1) Pneumonia: Status: Acute Code(s): J18.9 - Pneumonia, unspecified organism Qualifiers: Pneumonia type: due to unspecified organism Laterality: bilateral Lung location: unspecified part of lung Qualified Code(s): J18.9 - Pneumonia, unspecified organism (2) Acute respiratory failure with hypoxia: Status: Acute Code(s): J96.01 - Acute respiratory failure with hypoxia (3) COVID-19 determined by clinical diagnostic criteria: Status: Acute Code(s): U07.1 - COVID-19 Medications at Discharge Home Medications atorvastatin 10 mg OTHER DAILY 06/22/21 losartan 25 mg PO DAILY 06/22/21 sertraline 100 mg OTHER DAILY 06/22/21 dexamethasone 6 mg PO DAILY 6 Days #9 tab 06/26/21 Hospital Course Operations None Procedures None Summary of Care Provided Minutes Spent on Discharge: 32 Hospital Course: 30-year-old white male presents with shortness of breath. Patient been sick since June 11 and presented on the with progressive shortness of breath. Patient had known exposure to COVID-19 after being around his daughter and grandchild who tested positive for that. Patient was started on 6 L and received dexamethasone. His rapid as well as PCR were negative but clinically his fissure is more consistent with the COVID-19 as well as his CAT scan findings. Patient is unvaccinated. Patient was treated with dexamethasone and was out of the window for remdesivir and patient was observed. Patient has steadily improved and today he was ambulated at bedside and on 4 L nasal cannula and dropped down to 90%. Patient will therefore be discharged with oxygen 4 L continuous. Clinically, the patient's exam is consistent with Covid as well as CAT scan findings and also his history where he had no exposure to COVID-19. Patient was treated empirically with antibiotics but infectious work-up came back negative and antibiotics were discontinued on the and patient has actually improved after discontinuation of the antibiotics. Physical Exam Const alert General Appearance: cooperative Cardio regular rate, regular rhythm, S1 normal heart sound and S2 normal heart sound GI normal to inspection, nondistended, normoactive bowel sounds, soft to palpation and non-tender Weight / BMI Weight Weight: 104.326 kg Body Mass Index (BMI) 34.9 ABG / Lab / Microbiology Data Result Diagrams: 06/26/21 07:00 06/26/21 07:00 Laboratory: Laboratory Results - last 24 hr 06/26/21 07:00: WBC 11.7 H, RBC 4.64, Hgb 13.4, Hct 42.0, MCV 90.5, MCH 28.9, MCHC 31.9 L, RDW Std Deviation 44.5 H, RDW Coeff of Matt 13.4, Plt Count 446, MPV 8.4, Immature Gran % (Auto) 4.800 H, Neut % (Auto) 80.1 H, Lymph % (Auto) 8.6 L, [place] % (Auto) 4.9, Eos % (Auto) 0.9, Baso % (Auto) 0.7, Absolute Neuts (auto) 9. 4 H, Absolute Lymphs (auto) 1.01, Nucleated RBC % 0 06/26/21 07:00: Sodium 138, Potassium 3.7, Chloride 105, Carbon Dioxide 25.0, Anion Gap 8, BUN 23 H, Creatinine 0.75, Estim Creat Clear Calc 64.60, Est GFR (MDRD) Af Amer 132, Est GFR (MDRD) Non-Af 109, BUN/Creatinine Ratio 30.8 H, Glucose 103, Calcium 8.3 L, Total Bilirubin 0.50, AST 53 H, ALT 79 H, Alkaline Phosphatase 73, Total Protein 6.9, Albumin 2.3 L, Globulin 4.6 H, Albumin/Globulin Ratio 0.5 L Microbiology: Microbiology 06/23/21 01:50 Sputum, Expectorated/Coughed Gram Stain - Final 06/23/21 01:50 Sputum, Expectorated/Coughed Respiratory Culture - Final 06/23/21 13:45 Mucosa - Nasopharyngeal Respiratory Panel (PCR) - Final 06/22/21 23:59 Urine, Clean Catch Streptococcus pneumoniae Antigen (M - Final 06/22/21 23:59 Urine, Clean Catch Legionella Antigen - Final D/C Instructions Discharge Diet: No restrictions Additional Activity Instructions: Self isolate for at least 20 days since symptoms began (06/11-06/30/2021) AND at least one day (24 hours) have passed since resolution of fever without the use of fever-reducing agents AND improvement of symptoms (e.g., cough, shortness of breath) When around people in the same room, wear a face mask. Individuals also in the room should wear a mask. If possible, use a different bathroom and bedroom. Perform adequate hand hygiene. Avoid sharing dishes, glasses, etc. Call your doctor if you observe: Fever of 101 or Higher and Shortness of breath Meaningful Use Info Meaningful Use Diagnoses (Choose all that apply): None applicable Discharge Plan Admission Admit Date/Time: 06/22/21 12:23 Primary Reason for Your Visit: COVID 19 Attending Provider: Lupillo Hobson Primary Care Provider: Zachery Lindquist Discharge Orders/Prescriptions Prescriptions: New dexamethasone 4 mg Tablet 6 mg PO DAILY 6 Days Qty: 9 RF: 0 Continued losartan 25 mg Tablet 25 mg PO DAILY RF: 0 atorvastatin 10 mg 10 mg OTHER DAILY RF: 0 sertraline 100 mg 100 mg OTHER DAILY RF: 0 Discontinued levofloxacin 750 mg tablet 750 mg PO DAILY Qty: 6 RF: 0 Referrals / Follow Up: Zachery Lindquist MD [Primary Care Provider] - Within 1 Week Disposition Disposition (needs filled in before D/C Order can be placed): Home, Self Care Charges/Coding Visit Charges Inpatient E&M: 33314 Disch Hosp
--- NOTE | 2021-06-26 13:07 | CASEMGMT ---
Pt qualified for home O2, [facility], spoke with Rafael who is aware of referral.
--- NOTE | 2021-06-27 13:21 | CASEMGMT ---
ARELY CONLEY Discharge Follow-up Phone Call: GINA: 8 Strata: 2 Call Date: 06/27/21 Discharge Date: 06/26/21 Time of Call: 1315 Admitting Diagnosis: pneumonia, COVID This RN CM contacted pt via phone for discharge follow-up. Pt's answered and reported pt to be doing well and has not had a fever or sob. States pt ate his breakfast well and just woke from a nap. This RN CM spoke with pt who agrees he is doing well, denies any difficulty breathing, and reports to be wearing the O2 at 4l/min. Pt states he does not currently have a PO monitor but states one is on its way. Encouraged pt to monitor his oxygen levels when able. Pt states he was able to get a follow-up appointment with Dr. Lindquist's helper Opal and that he obtained and is taking the dexamethasone. Pt states he is staying isolated from others and has his to assist him as needed. Pt denies any questions or concerns. Toña Velázquez RN CM
== END 2021-06-26 16:23 | disposition home or self-care (01) | DRG 177 ==
LOC: ED 10:40 → MS3 12:29
PROVIDERS: Emergency Provider Emergency Medicine; PCP Family Medicine
DX: U07.1 COVID-19 (principal); J12.82 Pneumonia due to coronavirus disease 2019; J96.01 Acute respiratory failure with hypoxia; I10 Essential (primary) hypertension; E78.00 Pure hypercholesterolemia, unspecified; F32.9 Major depressive disorder, single episode, unspecified; Z79.899 Other long term (current) drug therapy; Z87.891 Personal history of nicotine dependence
CPT/HCPCS: 36415; 71045; 71275; 80048; 80053; 84484; 85025; 87070; 87205; 87449; 87633; 87635; 93005; 94640; 94667; 94668; 94762; 99251; 99285; J7050; Q9967; U0005; A4216; G0463; J0696; J1940; U0003

== ENCOUNTER 2021-07-09 12:12 | Emergency (ER) | payer MEDICARE, MEDICAID, SELFPAY ==
[2021-07-09] VITALS (8 sets, daily range): BP systolic 117–137; BP diastolic 72–85; PULSE 85–94; RESP 13–22; TEMP 36.1; O2SAT 94–97; BMI 35.7
--- NOTE | 2021-07-09 13:14 | RAD_ITS ---
STUDY: X-RAY CHEST REASON FOR EXAM: Male, 70 years old. SOB TECHNIQUE: AP COMPARISON: 06/22/2021 FINDINGS: Increasing consolidation of the right upper lobe since the prior study with additional ill-defined opacities along the periphery of the left lung and right lung base. There is no demonstrated pleural abnormality. Right hemidiaphragm is elevated. Normal size heart. Normal mediastinum and uvaldo. Normal visualized pulmonary arteries. Normal visualized aortic arch and descending thoracic aorta. No acute bony process. Operative changes of the cervical spine. There is no demonstrated abnormality of the visualized soft tissue structures of the upper abdomen. RAD/Chest 1 View IMPRESSION: 1. Unfavorable change. Worsening multilobar pulmonary infiltrates since 06/22/2021. Electronically Signed: Aniceto Coffey MD ([place]) at 13:38 EDT , Service support ,
[2021-07-09 13:41] LABS: Absolute Neutrophil Count 5.9 X10^3/uL (2.0-7.7); Basophil# 0.04 X10^3/uL; Basophil% 0.4 % (0-1); Eosinophil# 0.26 X10^3/uL; Eosinophils% 2.8 % (0-5); Hematocrit 42.4 % (40-54); Hemoglobin 13.5 g/dL (13.0-16.5); Lymphocyte % 20.6 % (19-41); Mean Corp Hgb Conc 31.8 g/dL (32-36); Mean Corpuscular Hgb 28.7 pg (27.0-32.0); Mean Corpuscular Volume 90.2 fL (80-94); Mean Platelet Vol. 8.7 fl (6.2-12.0); Monocyte# 1.09 X10^3/uL; Monocyte% 11.8 % (0-10); NRBC Flagged by Analyzer 0 % (0-5); Neutrophil # 5.87 X10^3/uL (2.7-7.7); Neutrophil % 63.9 % (47-70); Platelet Count 221 K/mm3 (150-450); RBC Distribution Width CV 13.3 % (11.6-14.6); RBC Distribution Width SD 44.2 fl (35.1-43.9); White Blood Count 9.2 K/mm3 (4.4-11.0)
[2021-07-09 13:51] LABS: Anion Gap 7 (5-15); BUN 15 mg/dL (7-18); BUN/Creat Ratio 17.9 RATIO (10-20); Chloride 107 mmol/L (98-107); Creatinine, Serum 0.84 mg/dL (0.70-1.30); EST Glomerular Filtration Rate 96 mL/min (>60); Est Glom Filt Rate - Afr Amer 116 mL/min (>60); Glucose 75 mg/dL (74-106); Potassium 3.8 mmol/L (3.5-5.1); Sodium Level 140 mmol/L (136-145)
--- NOTE | 2021-07-09 14:48 | ED.RN ---
POST CT, PT 85% SPO2 WITH EXERTION ON 4L .
[2021-07-09] MEDS: Ipratropium/Albuterol Sulfate 3 ML AMPUL.NEB INHALATION (16:16)
--- NOTE | 2021-07-09 17:55 | EDS_ITS ---
HPI History of Present Illness Chief Complaint: Shortness of Breath Informant: patient Onset/Context/Timing Onset: Weeks (2) Context: gradual Timing: Continuous Quality: Positive for Dyspnea on exertion Worsened by: Exertion Relieved by: Rest Associated Symptoms cough and white sputum; Negative for rhinorrhea, ear pain, fever, sore throat or chills Chest Pain: Positive for None Narrative Narrative: Patient presents with shortness of breath that has been getting worse over the past few weeks. Patient states he was recently admitted for pneumonia. Patient states he completed his antibiotics and steroids. Patient states his breathing is worse with any exertion and better with rest. Patient admits to a cough with some white sputum. Patient denies any fevers or chills. Patient denies any chest pain. Patient denies any sore throat, ear pain, or rhinorrhea. On his last admission, he had a negative Covid antigen as well as a negative Covid PCR. [facility] Medical History Cervical spine degeneration Depression Depression Former smoker Hypertension Home Medications atorvastatin 10 mg OTHER DAILY 06/22/21 [History Last Taken Unknown] losartan 25 mg PO DAILY 06/22/21 [History Last Taken Unknown] sertraline 100 mg OTHER DAILY 06/22/21 [History Last Taken Unknown] dexamethasone 6 mg PO DAILY 6 Days #9 tab 06/26/21 [Rx Last Taken Unknown] albuterol sulfate [Ventolin HFA] 2 puff INHALATION Q4H PRN PRN #1 inhaler 07/09/21 [Rx Last Taken Unknown] Allergy/AdvReac Type Severity Reaction Status Date / Time No Known Allergies Allergy Verified 07/09/21 13:05 Social History Smoking Status: Former smoker ROS ROS ED Constitutional Constitutional ED: Denies chills or fever(s) Eyes Eyes: Denies blurry vision or change in vision ENT ENT ED: Denies rhinorrhea or sore throat Cardiovascular Cardiovascular: Denies chest pain or palpitations Respiratory/Chest Respiratory/Chest: Reports cough and dyspnea Gastrointestinal Gastrointestinal: Denies nausea or vomiting Genitourinary Genitourinary ED: Denies dysuria or hematuria Musculoskeletal Musculoskeletal: Denies back pain or neck pain Integumentary Reports rash; Denies abscess Neurologic Neurologic: Denies headache(s) or weakness Allergic/Immunologic Allergic/Immunologic ED: Denies mouth swelling or urticaria EXAM Physical Exam Const Vital Signs: 07/09/21 13:03 07/09/21 14:53 07/09/21 14:54 Temperature 97 F L 97 F L Temperature Source Temporal Temporal Pulse Rate 94 87 87 Respiratory Rate 22 H 20 H 20 H Respiratory Effort Short of Breath Respiratory Depth Normal Respiratory Pattern Normal Blood Pressure 122/82 H 137/72 H 137/72 H Blood Pressure Mean 95 93 93 Pulse Ox 97 94 94 Oxygen Delivery Method Nasal Cannula Nasal Cannula Nasal Cannula Oxygen Flow Rate (L/min) 4 4 4 07/09/21 15:00 07/09/21 16:00 07/09/21 16:18 Temperature 97 F L 97 F L Temperature Source Temporal Temporal Pulse Rate 87 89 89 Respiratory Rate 20 H 13 13 Respiratory Effort Respiratory Depth Respiratory Pattern Normal Blood Pressure 137/72 H 117/82 H Blood Pressure Mean 93 93 Pulse Ox 94 96 Oxygen Delivery Method Nasal Cannula Nasal Cannula Oxygen Flow Rate (L/min) 4 4 Positive well nourished and well developed General Appearance ED: well developed HEENT Reports moist mucous membranes Neck supple and no JVD Resp normal respiratory effort and clear to auscultation bilaterally Auscultation: diminished lung sounds diffuse Cardio regular rate, regular rhythm and no murmurs GI normal to inspection, nondistended, normoactive bowel sounds and non-tender Palpation: soft Extremity normal to inspection General Extremety ED: Negative for edema or tenderness General Extremity: Negative for edema Neuro oriented x3, CN's II-XII intact bilaterally and no sensory deficits noted Sensorium / Orientation: alert Motor Exam: strength 5/5 throughout Psych mental status grossly normal Skin no rashes or lesions noted MDM MDM MDM Narrative Medical decision making narrative: Patient was given a DuoNeb aerosol here. CBC and basic metabolic profile were obtained and were within normal limits. Portable chest x-ray was obtained. There is 1 view. On my interpretation, there is worsening of the pulmonary infiltrates since 06/22/2021. There is no cardiomegaly. Bony thorax is normal. Radiologist also interpreted the x-ray and agrees. COVID-19 rapid antigen was obtained was negative. I did review his prior results and there is COVID-19 PCR was negative on his last admission. Patient was advised of his findings. Patient wants to go home. Patient was given a prescription for an albuterol inhaler. Patient was instructed to continue his incentive spirometer as well. Patient was instructed to follow-up with his primary care physician in 3 to 5 days. Patient was instructed return if worse in any way. Patient understood and was agreeable with the plan. All questions were answered. Lab Data Attestation: I reviewed the patient's lab results. Labs: Laboratory Results - last 24 hr 07/09/21 07/09/21 13:30 13:30 WBC 9.2 RBC 4.70 Hgb 13.5 Hct 42.4 MCV 90.2 MCH 28.7 MCHC 31.8 L RDW Std Deviation 44.2 H RDW Coeff of Matt 13.3 Plt Count 221 MPV 8.7 Immature Gran % (Auto) 0.500 Neut % (Auto) 63.9 Lymph % (Auto) 20.6 [place] % (Auto) 11.8 H Eos % (Auto) 2.8 Baso % (Auto) 0.4 Absolute Neuts (auto) 5.9 Absolute Lymphs (auto) 1.90 Nucleated RBC % 0 Sodium 140 Potassium 3.8 Chloride 107 Carbon Dioxide 26.0 Anion Gap 7 BUN 15 Creatinine 0.84 Estim Creat Clear Calc 76.90 Est GFR (MDRD) Af Amer 116 Est GFR (MDRD) Non-Af 96 BUN/Creatinine Ratio 17.9 Glucose 75 Calcium 9.0 Radiography Chest X-Ray - ED: 1 View, Read by ED Physician, Read by Radiologist, Right Infiltrate and Left Infiltrate Diagnostic Testing: Radiology Impression Chest X-Ray 07/09/21 13:14 IMPRESSION: 1. Unfavorable change. Worsening multilobar pulmonary infiltrates since 06/22/2021. Electronically Signed: Aniceto Coffey MD ([place]) at 13:38 EDT , Service support , Discharge Plan Triage Chief Complaint: Shortness of Breath ED Provider: Lupillo Bourne Dx/Rx/DC Orders Clinical Impression: COVID-19 determined by clinical diagnostic criteria Instructions: Coronavirus Disease 2019 (COVID-19): Caring for Yourself or Others Prescriptions: New albuterol sulfate [Ventolin HFA] 1 INHALER inhaler 2 puff inhalation Q4H PRN PRN (Reason: Wheezing) Qty: 1 RF: 0 No Action losartan 25 mg Tablet 25 mg PO DAILY RF: 0 atorvastatin 10 mg 10 mg OTHER DAILY RF: 0 sertraline 100 mg 100 mg OTHER DAILY RF: 0 dexamethasone 4 mg Tablet 6 mg PO DAILY 6 Days Qty: 9 RF: 0 Primary Care Provider: Zachery Lindquist Referrals: Zachery Lindquist MD [Primary Care Provider] - 3-5 Days Activity Restrictions/Additional Instructions: You may also use [id number] Mucinex DM to help with cough. Disposition Disposition: Home, Self Care Discharge Date/Time: 07/09/21 18:18
== END 2021-07-09 18:18 | disposition home or self-care (01) ==
PROVIDERS: Emergency Provider Emergency Medicine; PCP Family Medicine
DX: U07.1 COVID-19 (principal); I10 Essential (primary) hypertension; F32.A Depression, unspecified; Z79.899 Other long term (current) drug therapy; Z79.52 Long term (current) use of systemic steroids; Z87.891 Personal history of nicotine dependence
CPT/HCPCS: 71045; 80048; 85025; 87426; 94640; 99285; A4216